=== PATIENT | male | born 1945 | race American Indian/Alaskan Native ===

== ENCOUNTER 2020-02-07 10:06 | Day surgery (SDC) | payer MEDICARE ==
[2020-02-07] MEDS ORDERED: SODIUM CHLORIDE 0.9% 1000 ML 1,000 ML ONE (10:21)
--- NOTE | 2020-02-07 11:08 | Anesthesia Day of Surgery ---
Anesthesia Day of Surgery - Day of Surgery Patient Examined: Yes Patient H&P Reviewed: Yes Patient is NPO: Yes
--- NOTE | 2020-02-07 11:08 | Anesthesia Consultation ---
Anesthesia Consult and Med Hx Date of service: 02/07/20 - Airway Anesthetic Teeth Evaluation: Good ROM Head & Neck: Adequate Mental/Hyoid Distance: Adequate Mallampati Class: Class II Intubation Access Assessment: Good - Pre-Operative Health Status ASA Pre-Surgery Classification: ASA2 Proposed Anesthetic Plan: MAC - Pulmonary Hx Respiratory Symptoms: No (+2FS) - Cardiovascular System Hx Hypertension: Yes - Endocrine Hx Renal Disease: No Hx Cirrhosis: No Hx Liver Disease: No Hx Non-Insulin Dependent Diabetes: No Hx Thyroid Disease: No - Hematic Hx Sickle Cell Disease: No
[2020-02-07] MEDS ORDERED: SODIUM CHLORIDE 0.9% 1000 ML 1,000 ML IV SCH (12:00)
[2020-02-07] MEDS ORDERED: LIDOCAINE MPF (2%) 20 MG/1 ML VIAL 5 ML ONE (12:09)
[2020-02-07] MEDS ORDERED: propofoL 200 MG/20 ML VIAL IV ONE ×2 (12:10→12:25)
--- NOTE | 2020-02-07 12:42 | Procedure Note ---
Date of procedure: 02/07/20 Pre-op diagnosis: Colon Polyp Screening/ P/H/O Cancer (Prostate Cancer)/ F/H/O Cancer Post-op diagnosis: other (Two,Small Descending Colon Polyps (possibly Hyperplastic)/ Mild to moderate Internal Hemorrhoids) Procedure: Colonoscopy with cold Biopsy Anesthesia: MAC Surgeon: LUL POWELL Estimated blood loss: minimal Pathology: list Specimen disposition: to lab Condition: stable Disposition: same day (Avoid aspirin and NSAID for 5 days otherwise resume home medication and follow up in 1 to 2 weeks ([phone]).)
--- NOTE | 2020-02-07 12:47 | Operative Report ---
PROCEDURE: Colonoscopy with cold biopsy. INDICATIONS: This is a 74-year-old -[place] gentleman with a prior history of prostate cancer, family history of cancer, the patient's brother had leukemia. Colonoscopy was done to assess for colon polyp screening. His last colonoscopy was 11 years ago. He said had some colon polyps at that time. DESCRIPTION OF PROCEDURE: Initial rectal exam was unremarkable. Instrument was passed through the rectum onto the cecum, which was identified with ileocecal valve and the appendiceal orifice. Visualization was fair to good. The cecum was also examined on the retroverted view and no additional pathology was noted. The cecum, ascending colon, transverse colon showed normal mucosa. In the descending colon, there were 2 small polyps that were noted, possibly hyperplastic, removed by cold biopsy with minimal bleeding. The remaining part of the descending colon, the sigmoid showed normal mucosa and the rectum showed mild to moderate internal hemorrhoids. No diverticular disease was noted. There was minimal bleeding associated with the biopsy and no complications associated with the procedure. ASSESSMENT: Colon polyp screening, family history of cancer there were two descending colon polyps that were removed, possibly hyperplastic, mild to moderate internal hemorrhoid. PLAN: To have the patient to avoid aspirin and aspirin-related products for the next few days. Resume home medication. The patient had no diverticular disease and also have the patient follow up in the office in 1-2 weeks' time. The procedure was done in the GI lab with assistance of the GI lab team, which included Maite VILLALOBOS; Micky mccartney and with assistance of anesthesia. JOB# [id number] LUCERO/TYREL QUIROZ
--- NOTE | 2020-02-07 14:04 | Post Anesthesia Evaluation ---
- Post Anesthesia Evaluation Patient Participated: Yes Airway Patent: Yes Stable Respiratory Function: Yes Nausea/Vomiting: No Temp > 96.8F: Yes Pain Manageable: Yes Adequeate Hydration: Yes Anesthesia Complications: No Block Receding Appropriately: Not Applicable Patient on Ventilator: No
[2020-02-07 20:49] VITALS: BP 142/82
== END 2020-02-07 10:07 | disposition home or self-care (01) ==
LOC: GIO 10:06
DX: Z12.11 Encounter for screening for malignant neoplasm of colon (principal); K64.8 Other hemorrhoids; K57.30 Diverticulosis of large intestine without perforation or abscess without bleeding; K63.5 Polyp of colon; I10 Essential (primary) hypertension; E78.00 Pure hypercholesterolemia, unspecified; Z86.010 Personal history of colon polyps; Z80.0 Family history of malignant neoplasm of digestive organs; Z85.46 Personal history of malignant neoplasm of prostate; Z87.891 Personal history of nicotine dependence; Z98.890 Other specified postprocedural states
CPT/HCPCS: 45380; 88305; J2704; J7030